=== PATIENT | male | born 1965 | race Caucasian/White ===

== ENCOUNTER → 2020-09-26 11:26 | Outpatient (CLI) | payer BC, SELFPAY | PROVIDERS: Visit Provider Internal Medicine Gastroenterology | DX: Z01.812 Encounter for preprocedural laboratory examination (principal); Z20.822 Contact with and (suspected) exposure to COVID-19; Z13.810 Encounter for screening for upper gastrointestinal disorder | CPT/HCPCS: U0003 ==

== ENCOUNTER 2020-09-28 10:42 | Day surgery (SDC) | payer BC, SELFPAY ==
[2020-09-19 13:40] VITALS: BMI 27.2
[2020-09-28 11:12] VITALS: BP 129/76; PULSE 61; RESP 18; TEMP 36.6; O2SAT 97
--- NOTE | 2020-09-28 12:42 | [facility].PROC ---
[facility] Procedure Note Procedure Note:: Upper Endoscopy Procedure Report: Esophagogastroduodenoscopy with cold biopsies and TTS balloon dilation Endoscopost: Kyle Jaeger II, MD Referring Physician: Edwin Diaz MD Date of Procedure: September 28, 2020 Equipment: Olympus GIF 190 standard upper endoscope Sedation: MAC sedation Indications: Mr. Keen is a 55-year-old gentleman with dysphagia that had worsened over the last 6 to 12 months. He has had issues with dysphagia for 7 to 10 years. The patient reports no heartburn, reflux, indigestion or dyspepsia. His dysphagia is mostly to solids. 6 to 8 months ago, he did have a food impaction that lasted for several hours (up to 6 to 8 hours). He reports no weight loss. This is his first upper endoscopy. Procedure: Prior to the procedure, a history and physical exam was performed, and patient's medications and allergies were reviewed. The risks, benefits and alternatives of the sedation and procedure were discussed with the patient. All questions were answered and informed consent was obtained. The patient was brought to the procedure room. Patient identification and proposed procedure were verified by the physician and the nurse. The patient was placed in a left lateral decubitus position and the scope was passed under direct vision. Throughout the procedure, the patient's blood pressure, pulse, and oxygen saturations were monitored continuously. The upper GI endoscopy was accomplished without difficulty. The patient tolerated the procedure well. Findings: The scope was passed directly into the upper esophagus and advanced to the third portion of the duodenum. The post bulbar duodenum and duodenal bulb were normal with normal mucosa and conniventes. There was superficial erosion in the duodenal bulb. The scope was withdrawn through a normal pylorus into the stomach. There was moderate linear reactive gastropathy with erosions and some coffee-ground in the stomach consistent with moderate erosive reactive gastropathy (rule out NSAID gastropathy). Biopsies were taken from the antrum and lesser curvature. Upon retroflexion there was a small 1 to 2 cm hiatal hernia. The scope was then withdrawn into the esophagus. There was a distal esophageal ring. There was corrugation, linear striation and furrowing of the esophagus strongly suggestive of eosinophilic esophagitis. Cold biopsies were taken from the distal esophagus and from the proximal esophagus to rule out eosinophilic esophagitis. Next, the esophagus was dilated up from 15 to 20 mm with a TTS hydrostatic balloon with shattering of the distal esophageal ring. There was no evidence of reflux esophagitis or Landry's. The remainder of the esophageal mucosa was normal. Impression: 1. Esophageal ringlike stricture distally with corrugation/furrowing consistent with eosinophilic esophagitis status post dilation up to 20 mm 2. Small 1 to 2 cm hiatal hernia 3. Moderate linear erosive reactive gastropathy (rule out NSAID gastropathy) Plan: I will follow-up the biopsies. I will obtain [employer] food allergy testing today. I will place the patient on omeprazole 40 mg by mouth daily. If the patient does have evidence of eosinophilic esophagitis, I would consider adding fluticasone. I will discuss the findings with the patient and family.
[2020-09-28 12:45] VITALS: BP 101/57; PULSE 74; RESP 18; TEMP 36.6; O2SAT 93
[2020-09-28 12:55] VITALS: BP 117/52; PULSE 55; RESP 18; TEMP 36.6; O2SAT 99
[2020-09-28 13:05] VITALS: BP 124/68; PULSE 57; RESP 18; TEMP 36.6; O2SAT 100
[2020-09-28 13:15] VITALS: BP 117/76; PULSE 58; RESP 18; TEMP 36.6; O2SAT 100
[2020-09-28 13:46] VITALS: BP 119/89; PULSE 63; RESP 18; TEMP 36.6; O2SAT 100
[2020-10-05 00:08] LABS: F001-IgE Egg White <0.10 kU/L (Class 0); F002-IgE Milk <0.10 kU/L (Class 0); F003-IgE Codfish <0.10 kU/L (Class 0); F004-IgE Wheat <0.10 kU/L (Class 0); F010-IgE Sesame Seed <0.10 kU/L (Class 0); F013-IgE Peanut <0.10 kU/L (Class 0); F014-IgE Soybean <0.10 kU/L (Class 0); F024-IgE Shrimp <0.10 kU/L (Class 0); F256-IgE Walnut <0.10 kU/L (Class 0); F338-IgE Scallop <0.10 kU/L (Class 0)
== END 2020-09-28 13:46 | disposition home or self-care (01) ==
LOC: OUTP 10:45
PROVIDERS: PCP Family Medicine; Visit Provider Internal Medicine Gastroenterology
PROC: 0DJ08ZZ Inspection of Upper Intestinal Tract, Via Natural or Artificial Opening Endoscopic (ICD-10-PCS; CPT 43235; principal; 2020-09-28 12:00)
DX: K22.2 Esophageal obstruction (principal); K20.0 Eosinophilic esophagitis; K31.9 Disease of stomach and duodenum, unspecified; K44.9 Diaphragmatic hernia without obstruction or gangrene; Z79.899 Other long term (current) drug therapy
CPT/HCPCS: 43239; 43249; 36415; 86003; 86008; C1726

== ENCOUNTER → 2020-10-30 09:03 | Outpatient (POV) | payer BC, SELFPAY | PROVIDERS: Visit Provider Dermatology | DX: Z00.00 Encounter for general adult medical examination without abnormal findings (principal) ==

== ENCOUNTER → 2021-12-31 13:00 | Outpatient (CLI) | payer BC, SELFPAY ==
[2021-12-31 09:21] LABS: MANUAL DIFFERENTIAL MANUAL DIFFERENTIAL (MANUAL DIFF)
[2021-12-31 09:57] LABS: Alanine Aminotransferase 22 U/L (12-78); Albumin/Globulin Ratio 1.5 (1.1-1.8); Alkaline Phosphatase 118 U/L (38-126); Aspartate Amino Transferase 29 U/L (17-59); Bilirubin,Total 1.2 mg/dl (0.2-1.3); Blood Urea Nitrogen 20 mg/dl (9-20); Carbon Dioxide 28 mmol/L (22.0-30.0); Chloride 105 mmol/L (98-107); Cholesterol 169 mg/dl (140-200); Estimated Glomerular Filt Rate 62 ml/min (>60); GFR (African American) 76 ML/MIN (>60); Globulin 2.6 g/dL (1.3-3.2); Sodium 138 mmol/L (136-145); Total Protein,Serum 6.6 g/dl (6.3-8.2); Triglycerides 87 mg/dl (30-150); VLDL Cholesterol 17 mg/dL (0-40)
[2021-12-31 10:03] LABS: Basophils # 0.1 K/mm3 (0-0.2); Basophils % 1.3 % (0.1-2.0); Eosinophils # 0.2 K/mm3 (0.0-0.4); Eosinophils % 4.1 % (0.1-12.0); Hematocrit 46.8 % (42.0-52.0); Hemoglobin 14.5 g/dL (14.1-18.0); Lymphocytes # 1.4 K/mm3 (0.7-4.5); Mean Corpuscular HGB Conc 30.9 g/dL (31.8-35.4); Mean Corpuscular Hemoglobin 30.2 pg (27.0-31.2); Mean Corpuscular Volume 97.8 fl (80-94); Mean Platelet Volume 8.7 fl (7.4-10.4); Monocytes # 0.4 K/mm3 (0.1-1.0); Monocytes % 8.2 % (1.7-9.3); Neutrophils # 2.3 K/mm3 (1.8-7.8); Neutrophils % 53.4 % (37.0-80.0); Platelet Count 232 K/mm3 (142-424); Red Blood Count 4.79 M/mm3 (4.60-6.20); Red Cell Distribution Width 12.4 % (11.5-17.5); White Blood Count 4.3 K/mm3 (4.8-10.8)
[2021-12-31 10:04] LABS: Anion Gap 9.5 mEq/L (5-15); Potassium 4.5 mmoL/L (3.5-5.1)
[2021-12-31 10:07] LABS: Calcium 9.4 mg/dl (8.4-10.2); Chol/HDL Ratio 1.8 (1-3.5); Glucose 103 mg/dl (74-100); HDL Cholesterol 94 mg/dl (40-60)
[2021-12-31 10:28] LABS: Thyroid Stimulating Hormone 1.87 uIU/mL (0.465-4.68)
[2021-12-31 17:18] LABS: Eosinophils % 4 % (0-3); Lymphocytes % 46 % (10-50); Monocytes % 7 % (2-9); Neutrophils % 41 % (42-76); Total Cells Counted 100
[2021-12-31 17:19] LABS: Burr Cells 1+
[2021-12-31 17:20] LABS: Platelet Estimate Normal; Tear Drop Cells 1+
[2022-01-02 01:58] LABS: Direct LDL Cholesterol 63 mg/dL (100-129)
== END ==
PROVIDERS: PCP Nurse Practitioner; Visit Provider Nurse Practitioner
DX: Z00.00 Encounter for general adult medical examination without abnormal findings (principal); J01.00 Acute maxillary sinusitis, unspecified; J30.9 Allergic rhinitis, unspecified; Z13.29 Encounter for screening for other suspected endocrine disorder; Z13.220 Encounter for screening for lipoid disorders; Z12.5 Encounter for screening for malignant neoplasm of prostate; Z79.899 Other long term (current) drug therapy
CPT/HCPCS: 80053; 80061; 84443; 85007; 85014; 85018; 85048; 85049; G0103

== ENCOUNTER → 2022-02-12 12:00 | Outpatient (CLI) | payer BC, SELFPAY ==
[2022-02-12 19:35] LABS: Adenovirus,PCR Not Detected (NotDetected); Bordetella Pertussis Not Detected (NotDetected); Chlamydophila Pneumoniae, PCR Not Detected (NotDetected); Coronavirus 19, PCR Not Detected (NotDetected); Coronavirus 229E Not Detected (NotDetected); Coronavirus NL63 Not Detected (NotDetected); Coronavirus OC43 Not Detected (NotDetected); Coronovirus HKU1,PCR Not Detected (NotDetected); Human Metapneumovirus Not Detected (NotDetected); Influenza A, PCR Not Detected (NotDetected); Influenza AH1, 2009 Not Detected (NotDetected); Influenza AH1, PCR Not Detected (NotDetected); Influenza AH3,PCR Not Detected (NotDetected); Influenza B, PCR Not Detected (NotDetected); Mycoplasma Pneumoniae, PCR Not Detected (NotDetected); Parainfluenza 1, PCR Not Detected (NotDetected); Parainfluenza 2, PCR Not Detected (NotDetected); Parainfluenza 3, PCR Not Detected (NotDetected); Parainfluenza 4, PCR Not Detected (NotDetected); Respiratory Syncytial Virus Not Detected (NotDetected)
[2022-02-12 19:57] LABS: Basophils # 0.1 K/mm3 (0-0.2); Basophils % 0.9 % (0.1-2.0); Eosinophils # 0.2 K/mm3 (0.0-0.4); Eosinophils % 2.6 % (0.1-12.0); Hemoglobin 15.2 g/dL (14.1-18.0); Lymphocytes % 17.3 % (10-50); Mean Corpuscular HGB Conc 32.4 g/dL (31.8-35.4); Mean Corpuscular Hemoglobin 31.6 pg (27.0-31.2); Mean Corpuscular Volume 97.5 fl (80-94); Mean Platelet Volume 8.9 fl (7.4-10.4); Monocytes # 0.6 K/mm3 (0.1-1.0); Monocytes % 10.3 % (1.7-9.3); Neutrophils # 4.1 K/mm3 (1.8-7.8); Platelet Count 227 K/mm3 (142-424); Red Blood Count 4.82 M/mm3 (4.60-6.20); Red Cell Distribution Width 13.2 % (11.5-17.5); White Blood Count 5.9 K/mm3 (4.8-10.8)
[2022-02-12 23:57] LABS: Rhinovirus/Enterovirus Detected (NotDetected)
== END ==
PROVIDERS: PCP Family Medicine; Visit Provider Family Medicine
DX: Z20.822 Contact with and (suspected) exposure to COVID-19 (principal); J06.9 Acute upper respiratory infection, unspecified; B34.8 Other viral infections of unspecified site
CPT/HCPCS: 85025; 87581; 87632; 87798; C9803; U0003; U0005

== ENCOUNTER → 2022-06-30 23:29 | Outpatient (CLI) | payer BC, SELFPAY ==
[2022-06-30 19:14] LABS: Adenovirus,PCR Not Detected (NotDetected); Bordetella Pertussis Not Detected (NotDetected); Chlamydophila Pneumoniae, PCR Not Detected (NotDetected); Coronavirus 229E Not Detected (NotDetected); Coronavirus NL63 Not Detected (NotDetected); Coronavirus OC43 Not Detected (NotDetected); Coronovirus HKU1,PCR Not Detected (NotDetected); Human Metapneumovirus Not Detected (NotDetected); Influenza A, PCR Not Detected (NotDetected); Influenza AH1, 2009 Not Detected (NotDetected); Influenza AH1, PCR Not Detected (NotDetected); Influenza AH3,PCR Not Detected (NotDetected); Influenza B, PCR Not Detected (NotDetected); Mycoplasma Pneumoniae, PCR Not Detected (NotDetected); Parainfluenza 1, PCR Not Detected (NotDetected); Parainfluenza 2, PCR Not Detected (NotDetected); Parainfluenza 3, PCR Not Detected (NotDetected); Parainfluenza 4, PCR Not Detected (NotDetected); Respiratory Syncytial Virus Not Detected (NotDetected); Rhinovirus/Enterovirus Not Detected (NotDetected)
[2022-06-30 21:49] LABS: Coronavirus 19, PCR Detected (NotDetected)
== END ==
PROVIDERS: PCP Nurse Practitioner; Visit Provider Nurse Practitioner
DX: U07.1 COVID-19 (principal); J06.9 Acute upper respiratory infection, unspecified; J02.9 Acute pharyngitis, unspecified
CPT/HCPCS: 87581; 87632; 87798; C9803; U0003; U0005

== ENCOUNTER 2024-06-20 15:36 | Outpatient (CLI) | payer BC, SELFPAY ==
[2024-06-20 18:10] LABS: Coronavirus 19, PCR Not Detected (NotDetected); Human Rhinovirus Not Detected (NotDetected); Influenza A, PCR Not Detected (NotDetected); Influenza B, PCR Not Detected (NotDetected); Respiratory Syncytial Virus Not Detected (NotDetected)
== END 2024-06-20 23:59 | disposition home or self-care (01) ==
LOC: LAB.DROPOF 06-22 10:44
PROVIDERS: PCP Nurse Practitioner; Visit Provider Nurse Practitioner
DX: J06.9 Acute upper respiratory infection, unspecified (principal); R05.9 Cough, unspecified; R51.9 Headache, unspecified; R52 Pain, unspecified; R09.81 Nasal congestion
CPT/HCPCS: 87631